=== PATIENT | male | born 1945 | race Caucasian/White ===

== ENCOUNTER 2016-08-28 00:06 | Observation (INO) | payer OTHER, MEDICARE ==
[~2016-08-28] VITALS: Ht 175.3 cm; Wt 100.0 kg
[2016-08-28] VITALS (8 sets, daily range): BP systolic 121–151; BP diastolic 68–94; PULSE 74–115; RESP 16–20; TEMP 98–98.7; O2SAT 95–98
[2016-08-28] MEDS ORDERED: ASPI81CH CHEW (00:16)
[2016-08-28] MEDS ORDERED: FURO1TAB62 PO (00:16)
[2016-08-28] MEDS ORDERED: SODIUM CHLORIDE 0.9% FLUSH 5 ML FLUSH IVF PRN ×2 (00:45→03:30)
[2016-08-28] MEDS ORDERED: NITROGLYCERIN 0.4 MG SL 25 TABS/BTL SL ONE (00:45)
[2016-08-28] MEDS ORDERED: NITROGLYCERIN 2% OINT 1 GM PACKET TOP ONE (00:45)
[2016-08-28 01:05] LABS: AUTOMATED NEUTROPHIL # 9.8 TH/MM3 (1.8-7.7); BASOPHIL % 0.4 % (0.0-2.0); EOSINOPHIL % 0.1 % (0.0-4.0); HEMATOCRIT 42.9 % (39.0-51.0); HEMO FLAGS DIFF FINAL; LYMPH % 12.3 % (9.0-44.0); LYMPHOCYTE # 1.5 TH/MM3 (1.0-4.8); MEAN CELL VOLUME 92.4 FL (80.0-100.0); MEAN CORPUSCULAR HEMOGLOBIN 31.5 PG (27.0-34.0); MONO % 5.3 % (0.0-8.0); NEUT % 81.9 % (16.0-70.0); PLATELET COUNT 306 TH/MM3 (150-450); RED BLOOD COUNT 4.64 MIL/MM3 (4.50-5.90); RED CELL DISTRIBUTION WIDTH 13.7 % (11.6-17.2)
--- NOTE | 2016-08-28 01:10 | RADRPT ---
EXAM DATE/TIME: 08/28/2016 00:50 [facility] COMPARISON: No previous studies available for comparison. INDICATIONS : Shortness of breath. MEDICAL HISTORY : Hypertension. SURGICAL HISTORY : Cardiac catheterization. ENCOUNTER: Initial ACUITY: 1 day PAIN SCORE: Non-responsive. LOCATION: Bilateral chest FINDINGS: A single view of the chest demonstrates the lungs to be symmetrically aerated without evidence of mas s, infiltrate or effusion. Mild cardiomegaly. The cardiomediastinal contours are unremarkable. [place] us structures are intact. CONCLUSION: No acute disease. Mild cardiomegaly. Quentin Pérez MD on August 28, 2016 at 1:08 Board Certified Radiologist. This report was verified electronically.
--- NOTE | 2016-08-28 01:14 | PD ---
HPI Chief Complaint: Chest Pain Time Seen by Provider: 00:37 Travel History International Travel<30 days: No Contact w/Intl Traveler<30days: No Traveled to known affect area: No History of Present Illness HPI The patient is a 70 year old female who presents to the [facility] emergency department with a history of chest pain that he reports began 3 hours prior to arrival. The patient reports that the pain is in the center of his chest and is constant. He reports the pain is sharp in character and 10 out of 10 in severity. He reports that he has a history of 3 prior myocardial infarctions, however he denies any cardiac surgery or stent placements. He reports that he last had a cardiac catheterization a year ago. He reports that he is visiting the area from out of town. He reports that he decided to discontinue most of his medications 100 days ago as he did not feel well on them. He reports that 4 weeks ago at another facility was diagnosed with a pulmonary embolism. He denies being on any anticoagulation other than a baby aspirin daily. The patient reports that he did take his baby aspirin today. He reports that he also is taking Lasix daily. The patient reports having associated shortness of breath with the chest pain, nausea, diaphoresis. He denies having any vomiting or diarrhea. The patient denies having any recent fevers, neck pain, abdominal pain, vomiting, diarrhea, urinary symptoms, or neurologic symptoms. [facility] Past Medical History Narrative Medical The patient's past medical history is significant for a prior cerebrovascular accident, right bundle branch block, reported history of 3 prior myocardial infarctions, diagnosis of a pulmonary embolism 4 weeks ago, history of hypertension, history of pancreatitis Heart Rhythm Problems: Yes (RBB) Cardiac Catheterization: Yes Cerebrovascular Accident: Yes Diabetes: Yes Patient Takes Glucophage: No Hypertension: Yes Medical other: Yes (SHRAPMETAL IN BODY) Psychiatric: Yes (TARDIVE DISK) Respiratory: Yes (PE) Myocardial Infarction: Yes (X3) Pancreatitis: Yes Tetanus Vaccination: Unknown Influenza Vaccination: No Past Surgical History Narrative Surgical The patient's past surgical history is significant for an appendectomy, cholecystectomy, shrapnel removal from his head and groin. Appendectomy: Yes Cholecystectomy: Yes Social History Alcohol Use: No Tobacco Use: Yes Substance Use: No Allergies-Medications (Allergen,Severity, Reaction): Coded Allergies: No Known Allergies (Unverified , 08/28/16) Reported Meds & Prescriptions Reported Meds & Active Scripts Active Reported Glucotrol (Glipizide) 5 Mg Tab 2.5 Mg PO HS Take 30 minutes before a meal Robaxin (Methocarbamol) Unknown Strength Tab 1 Tab PO DAILY Risperdal (Risperidone) Unknown Strength Tab 1 Tab PO DAILY Oxybutynin ER 24 HR (Oxybutynin Chloride) 10 Mg Tab 10 Mg PO DAILY Lasix (Furosemide) 20 Mg Tab 20 Mg PO DAILY Aspirin 81 Mg Chew 81 Mg CHEW DAILY Review of Systems Except as stated in HPI: all other systems reviewed are Neg General / Constitutional: No: Fever Eyes: No: Visual changes HENT: No: Headaches Cardiovascular: Positive: Chest Pain or Discomfort, Diaphoresis, Dyspnea on exertion Respiratory: Positive: Shortness of Breath Gastrointestinal: Positive: Nausea, No: Abdominal Pain Genitourinary: No: Dysuria Musculoskeletal: No: Pain Skin: No Rash Neurologic: No: Weakness Psychiatric: No: Depression Endocrine: No: Polydipsia Hematologic/Lymphatic: No: Easy Bruising Physical Exam Narrative General: The patient is a well-developed well-nourished male in no acute distress. Head and Neck exam: Head is normocephalic atraumatic. Eyes: Pupils are equal round and reactive to light. Nose: Midline septum with pink mucous membranes Mouth: Dentition unremarkable. Moist mucus membranes. Posterior oropharynx is not erythematous. No tonsillar hypertrophy. Uvula midline. Airway patent. Neck: No palpable lymphadenopathy. No nuchal rigidity. No thyromegaly. Cardiovascular: Sinus tachycardia in the low 100 without murmurs, gallops, or rubs. No pulse deficit to the extremities on simultaneous auscultation and palpation of his radial artery. Lungs: Clear to auscultation bilaterally. No wheezes, rhonchi, or rales. Abdomen: Soft, without tenderness to palpation in all 4 quadrants of the abdomen. No guarding, rebound, or rigidity. Normal bowel sounds are audible. Extremities: No clubbing, cyanosis, or edema. 2+ pulses in all 4 extremities. No Tenderness on palpation. Back: No spinous process tenderness to palpation. No costovertebral angle tenderness to palpation. Neurologic Exam: Grossly nonfocal. Skin Exam: No rash noted. Intact skin that is warm and dry. Data Data Last Documented VS Vital Signs Date Time Temp Pulse Resp B/P Pulse Ox O2 Delivery O2 Flow Rate FiO2 08/28/16 01:05 96 Nasal Cannula 2 08/28/16 01:05 16 08/28/16 00:26 93 08/28/16 00:11 98.2 142/94 Orders Electrocardiogram (08/28/16 00:40) B-Type Natriuretic Peptide (08/28/16 00:40) Ckmb (Isoenzyme) Profile (08/28/16 00:40) Complete Blood Count With Diff (08/28/16 00:40) Comprehensive Metabolic Panel (08/28/16 00:40) Magnesium (Mg) (08/28/16 00:40) Prothrombin Time / Inr (Pt) (08/28/16 00:40) Act Partial Throm Time (Ptt) (08/28/16 00:40) Troponin I (08/28/16 00:40) Lipase (08/28/16 00:40) Chest, Single Ap (08/28/16 00:40) Ecg Monitoring (08/28/16 00:40) Bilateral Bp Monitoring (08/28/16 00:40) Iv Access Insert/Monitor (08/28/16 00:40) Oximetry (08/28/16 00:40) Oxygen Administration (08/28/16 00:40) Nitroglycerin 2% Oint (Nitroglycerin 2% (08/28/16 00:45) Sodium Chloride 0.9% Flush (Ns Flush) (08/28/16 00:45) Nitroglycerin Sl (Nitrostat Sl) (08/28/16 00:45) Ct Pulmonary Angiogram (08/28/16 00:40) CKMB (08/28/16 00:45) CKMB% (08/28/16 00:45) Sodium Chlorid 0.9% 500 Ml Inj (Ns 500 M (08/28/16 01:45) Iohexol 350 Inj (Omnipaque 350 Inj) (08/28/16 01:54) Admit Order (Ed Use Only) (08/28/16 02:42) Labs Laboratory Tests Test 08/28/16 00:45 White Blood Count 12.0 TH/MM3 Red Blood Count 4.64 MIL/MM3 Hemoglobin 14.6 GM/DL Hematocrit 42.9 % Mean Corpuscular Volume 92.4 FL Mean Corpuscular Hemoglobin 31.5 PG Mean Corpuscular Hemoglobin 34.0 % Concent Red Cell Distribution Width 13.7 % Platelet Count 306 TH/MM3 Mean Platelet Volume 9.9 FL Neutrophils (%) (Auto) 81.9 % Lymphocytes (%) (Auto) 12.3 % Monocytes (%) (Auto) 5.3 % Eosinophils (%) (Auto) 0.1 % Basophils (%) (Auto) 0.4 % Neutrophils # (Auto) 9.8 TH/MM3 Lymphocytes # (Auto) 1.5 TH/MM3 Monocytes # (Auto) 0.6 TH/MM3 Eosinophils # (Auto) 0.0 TH/MM3 Basophils # (Auto) 0.0 TH/MM3 CBC Comment DIFF FINAL Differential Comment Prothrombin Time 11.8 SEC Prothromb Time International 1.1 RATIO Ratio Activated Partial 28.3 SEC Thromboplast Time Sodium Level 138 MEQ/L Potassium Level 4.6 MEQ/L Chloride Level 104 MEQ/L Carbon Dioxide Level 24.6 MEQ/L Anion Gap 9 MEQ/L Blood Urea Nitrogen 26 MG/DL Creatinine 1.67 MG/DL Estimat Glomerular Filtration 41 ML/MIN Rate Random Glucose 140 MG/DL Calcium Level 9.3 MG/DL Magnesium Level 1.5 MG/DL Total Bilirubin 0.4 MG/DL Aspartate Amino Transf 32 U/L (AST/SGOT) Alanine Aminotransferase 45 U/L (ALT/SGPT) Alkaline Phosphatase 93 U/L Total Creatine Kinase 336 U/L Creatine Kinase MB 7.3 NG/ML Creatine Kinase MB % 2.2 % Troponin I LESS THAN 0.02 NG/ML B-Type Natriuretic Peptide 47 PG/ML Total Protein 8.4 GM/DL Albumin 3.7 GM/DL Lipase 162 U/L [facility] Medical Decision Making Medical Screen Exam Complete: Yes Emergency Medical Condition: Yes Medical Record Reviewed: Yes Interpretation(s) Last Impressions Chest X-Ray 08/28/1639 Signed Impressions: Service Date/Time: Sunday, August 28, 2016 00:50 - CONCLUSION: No acute disease. Mild cardiomegaly. Quentin Pérez MD CT Angiography 08/28/1639 Signed Impressions: Service Date/Time: Sunday, August 28, 2016 01:50 - CONCLUSION: 1. No evidence for pulmonary emboli. 2. Coronary artery calcifications. 3. No infiltrate seen. Quentin Pérez MD Differential Diagnosis Acute coronary syndrome, versus pulmonary embolism, versus pneumonia, versus pneumothorax, versus acid reflux Narrative Course During the course of the patients emergency department visit, the patients history, examination, and differential diagnosis were reviewed with the patient. The patient had IV access obtained and blood work sent for analysis. The patient was placed on a cardiac exercise physiologist with oximetry and blood pressure monitoring. An EKG was done on arrival. The patient's EKG shows a sinus tachycardia rate of 105, no acute ST segment changes are noted. No ST segment elevation or depression. The patient reports that he took 1 baby aspirin earlier today and ambulance services also administered one baby aspirin. The patient was given sublingual nitroglycerin and an inch of nitroglycerin paste was placed to the chest wall. The patient was started on normal saline IV fluids. The patients laboratory studies were reviewed and remarkable for a white count of 12, hemoglobin 14.6, platelets 306 with 81.9 neutrophils. CMP is remarkable for a BUN of 26, creatinine 1.67, glucose 140, CPK 336 with a 2.2 MB percent, less than 0.02 troponin, BNP is 47, lipase 162, INR is 1.1 Radiology studies were reviewed and remarkable for a CTA to rule out PE shows no evidence of pulmonary embolism. Chest x-ray is unremarkable. Initially, the patient's case was discussed with Dr. Vivar regarding admission, however she felt that the patient would be a good candidate for the chest pain center. Therefore, the patient will be admitted to the chest pain center for rule out serial cardiac enzyme protocol. The patients results were discussed with the patient, including the plan of care. I explained that further testing and/ or monitoring is indicated based on the patients history, examination, and/ or laboratory findings. Therefore, I recommended admission for additional evaluation. The patient expressed understanding and was agreeable with this plan. The patient was admitted to the hospital in stable condition and sent to a bed under the care of the chest pain center. Diagnosis Primary Impression: Chest pain, rule out acute myocardial infarction Additional Impression: Hx of coronary artery disease Admitting Information Admitting Physician Requests: Masha Toledo MD Aug 28, 2016 01:14
[2016-08-28 01:23] LABS: ALT (GPT) 45 U/L (12-78); ANION GAP 9 MEQ/L (5-15); AST (GOT) 32 U/L (15-37); BICARBONATE 24.6 MEQ/L (21.0-32.0); BLOOD UREA NITROGEN 26 MG/DL (7-18); CHLORIDE 104 MEQ/L (98-107); GLOMERULAR FILTRATION RATE 41 ML/MIN (>89); MAGNESIUM 1.5 MG/DL (1.5-2.5); POTASSIUM 4.6 MEQ/L (3.5-5.1); SODIUM (NA) 138 MEQ/L (136-145)
[2016-08-28 01:26] LABS: ALKALINE PHOSPHATASE 93 U/L (45-117); APTT (PATIENT) 28.3 SEC (24.3-30.1); CREATINE KINASE 336 U/L (39-308); INTERNATIONAL NORMALIZED RATIO 1.1 RATIO; PROTHROMBIN TIME - PATIENT 11.8 SEC (9.8-11.6); TOTAL BILIRUBIN ADULT 0.4 MG/DL (0.2-1.0)
[2016-08-28 01:38] LABS: CKMB 7.3 NG/ML (0.5-3.6)
[2016-08-28] MEDS ORDERED: SODIUM CHLORID 0.9% 500 ML INJ 500 ML IV ONE (01:45)
[2016-08-28] MEDS ORDERED: IOHEXOL 350 MG/ML 10 ML VIAL (for RAD DIAG) IV ONE (01:54)
--- NOTE | 2016-08-28 02:10 | RADRPT ---
EXAM DATE/TIME: 08/28/2016 01:50 [facility] COMPARISON: No previous studies available for comparison. INDICATIONS : Shortness of breath and chest pain. IV CONTRAST: 72 cc Omnipaque 350 (iohexol) IV RADIATION DOSE: 23.32 CTDIvol (mGy) MEDICAL HISTORY : Cerebrovascular disease. Cardiovascular disease Hypertension.Diabetes Emboli SURGICAL HISTORY : Appendectomy. Cholecystectomy. ENCOUNTER: Initial ACUITY: 1 day PAIN SCALE: 8/10 LOCATION: Bilateral chest TECHNIQUE: Volumetric scanning of the chest was performed using a pulmonary embolism protocol MIP images were re constructed. Using automated exposure control and adjustment of the mA and/or kV according to patien t size, radiation dose was kept as low as reasonably achievable to obtain optimal diagnostic quality images. FINDINGS: PULMONARY ARTERIES: No filling defects are seen in the pulmonary arteries through the segmental level. LUNGS: There is no consolidation or pneumothorax . No concerning pulmonary nodule is visualized. PLEURAE: There is no pleural thickening or pleural effusion. MEDIASTINUM: There is good visualization of the great vessels of the middle mediastinum. No evidence of mediastin al or hilar adenopathy/mass. Coronary artery calcifications. MUSCULOSKELETAL: Within normal limits for patient age. MISCELLANEOUS: The visualized upper abdominal organs demonstrate no acute abnormality. CONCLUSION: 1. No evidence for pulmonary emboli. 2. Coronary artery calcifications. 3. No infiltrate seen. Quentin Pérez MD on August 28, 2016 at 2:07 Board Certified Radiologist. This report was verified electronically.
[2016-08-28] MEDS ORDERED: ACETAMINOPHEN 500 MG CPLT PO PRN (03:30)
[2016-08-28] MEDS ORDERED: ONDANSETRON HCL 4 MG/2 ML VIAL IV PRN (03:30)
[2016-08-28 04:38] LABS: CREATINE KINASE 297 U/L (39-308)
[2016-08-28 04:51] LABS: CKMB 6.2 NG/ML (0.5-3.6)
[2016-08-28] MEDS: NITROGLYCERIN 2% OINT 1 GM PACKET TOP SCH ×3 (06:00→12:00)
[2016-08-28 07:30] LABS: CREATINE KINASE 281 U/L (39-308)
--- NOTE | 2016-08-28 08:33 | EKG ---
Date Performed: 08/28/2016 Time Performed: 03:52:34 PTAGE: 70 years EKG: ATRIAL FIBRILLATION WITH RAPID VENTRICULAR RESPONSE BORDERLINE LEFT AXIS DEVIATION NONSPECI FIC ST & T-WAVE ABNORMALITY ABNORMAL ECG NO PREVIOUS TRACING DOCTOR: Ganesh Martell Interpretating Date/Time 08/28/2016 08:31:43
--- NOTE | 2016-08-28 08:34 | EKG ---
Date Performed: 08/28/2016 Time Performed: 00:19:03 PTAGE: 70 years EKG: SINUS TACHYCARDIA ABNORMAL RHYTHM ECG NO PREVIOUS TRACING DOCTOR: Ganesh Martell Interpretating Date/Time 08/28/2016 08:32:32
[2016-08-28] MEDS ORDERED: PANTOPRAZOLE SOD 40 MG DELAYED RELEASE TAB PO SCH (09:00)
[2016-08-28] MEDS ORDERED: SODIUM CHLORIDE 0.9% FLUSH 5 ML FLUSH IVF SCH (09:00)
[2016-08-28] MEDS ORDERED: ASPIRIN 325 MG TAB PO SCH (09:00)
[2016-08-28] MEDS ORDERED: OXYB10TA PO (10:10)
[2016-08-28] MEDS ORDERED: RISP0.5T20 PO (10:10)
[2016-08-28] MEDS ORDERED: ROBA500T PO (10:10)
--- NOTE | 2016-08-28 10:51 | MH ---
cc: PRABHA GUALLPA MD DATE OF ADMISSION: 08/28/2016 DATE OF : 1945 CHIEF COMPLAINT Chest pain. HISTORY OF PRESENT ILLNESS: This is a 70 year-old male with stated history of coronary artery disease, he has history of three myocardial infarctions in 1994. He states that he had a heart catheterization at that time. He does not know the results but states that he never had any stenting. He states that he has had no cardiac work up since. He states he is from out of town, planned on being in [facility] for a few days before trying to get a flight out to [place] to eventually continue to fly to another [facility] where he wants to move to. He states he took a taxi cab from [facility] to [place] and was walking around yesterday late afternoon into the evening trying to find a Hotel but every time they checked his debit card it would not work. He would try the next hotel which was not successful. He decided that he should probably go to the [email or web address]. He states that he knows how that works but knew he could get a place at the [employer]. He was told there is no longer [facility] giving sleeping arrangements. He ran into an officer at the time and asked he they could call him non emergency transportation to the hospital for his chest pain. [facility] was dispatched, on emergent basis for his chest pain. He said he developed chest discomfort while walking towards the [facility], in the left side of his chest, the squeezing sensation is still there. It began somewhere last night before midnight. He states he is short of breath and diaphoretic with it. He found nothing really to worsen or improve it, but states that the intensity waxes and wanes. He states that he was not given Nitroglycerin in the ambulance and state that he was not given a nitroglycerin in the emergency room but on records he was given sublingual nitroglycerin as well as nitro ointment. He also was given IV fluids. The patient also was discharged from a psychiatric facility 110 days ago. He states that since then for the last 110 days he has not been taking all his psychotropic medications. He states the only medication that he has continued to take include; Robinul, aspirin, Lasix, Risperdal and oxybutynin. We will try to have these medications verified. We will get the hvac field service technician involved. He states that there are 26 psychotropic medications that he is not taking. He also states that he had a history of a pulmonary embolus at a different facility four weeks ago. He states that he is not on anticoagulation therapy. PAST MEDICAL HISTORY: 1. He states that he had three myocardial infarction in 1994. 2. Pulmonary embolus four weeks ago. However, he states that he was never given anticoagulation. 3. History of hypertension. 4. Diabetes. 5. Denies hyperlipidemia. 6. Admits to schizophrenia as well. FAMILY HISTORY: He states that his mother had at age 58 of coronary artery disease. SOCIAL HISTORY: The patient quit smoking 22 years ago. Prior to that he smoked five packs of cigarettes daily for four years. He rarely has alcohol, denies illicit drugs. PAST SURGICAL HISTORY: Heart catheterization as mentioned. Appendectomy. Cholecystectomy. Removal of scrape metal. ALLERGIES NO KNOWN DRUG ALLERGIES MEDICATIONS: We will get an accurate list, hvac field service technician assistance hopefully. REVIEW OF SYSTEMS GENERAL: Denies fevers or chills. Denies recent illnesses. HEAD, EYES, EARS, NOSE, AND THROAT: Denies headache, earache, sore throat, difficulty swallowing. CARDIOVASCULAR SYSTEM: Described his discomfort as mentioned above. He had some diaphoresis. Denies sensation of the heart beating rapidly or irregularly. He denies syncope. RESPIRATORY: He states that he is short of breath. No inspirational chest discomfort. Denies coughing, wheezing or hemoptysis. GASTROINTESTINAL: He has nausea but denies emesis. Denies abdominal pain. Denies diarrhea, constipation, blood in stool. MUSCULOSKELETAL: Denies joint pain or edema. Denies calf pain or edema. NEUROVASCULAR: Denies headache or dizziness. ENDOCRINE: Denies polyuria or polydipsia. HEMATOLOGIC: Denies easy bruising. SKIN: Denies rash or itching. PHYSICAL EXAMINATION: VITAL SIGNS: Vital signs in the emergency department included a blood pressure of 142/95, 110, respirations 20, pulse oximetry 96% on room air and he is afebrile. Most recent vital signs include; blood pressure 131/77, heart rate 100. Respirations 18, pulse oximetry 97% on room air. He is afebrile. IN GENERAL: The patient was seen in the examination room in no apparent distress. He is pleasant and speaks in clear and complete sentences. HEAD, EYES, EARS, NOSE, AND THROAT: Head is Atraumatic, normocephalic. NECK: The neck is supple. Without lymphadenopathy. Trachea is midline, no jugular venous distention or carotid bruits. CARDIOVASCULAR SYSTEM: Regular rate and rhythm without murmur, gallop. RESPIRATORY: Lungs are clear to auscultation bilaterally, no wheezing, rales or rhonchi. No use of accessory muscles. He has reproducible chest wall discomfort. GASTROINTESTINAL: The abdomen is nontender, nondistended, bowel sounds are normal. No guarding or rebound. No obvious pulsatile masses or bruits, no costovertebral angle tenderness. Strong femoral pulses bilaterally. MUSCULOSKELETAL: The patient is moving upper and lower extremities freely. No joint tenderness or edema, no calf tenderness or edema, no Homans sign. Strong pulses in upper and lower extremities. NEUROVASCULAR: The patient is alert and oriented, cranial nerves II through XII are grossly intact. No focal deficits. Speech is clear. SKIN: No rashes, turgor is normal. RADIOLOGIC: Electrocardiogram initial electrocardiogram had sinus tachycardia rate of 116, without significant ST segment depression or elevation, the second electrocardiogram shows sinus tachycardia rate of 105. Without significant ST segment depression elevation. Third electrocardiogram sinus arrhythmia, rate of [address] segment depression or elevation. LABORATORY FINDINGS: CBC essentially unremarkable. Coagulation studies are unremarkable. Complete metabolic panel showed creatinine elevated at somewhat at 1.67, BUN elevated at 26, glomerular filtration rate is 41. Glucose elevated at 140, serial cardiac enzymes, troponins normal times three. BNP is normal at 47. Lipase normal at 62. IMAGING STUDIES: Included a chest x-ray read by the radiologist as no acute disease, mild cardiomegaly. A CT pulmonary angiogram obtained by and read through the radiologist with no evidence of pulmonary emboli. Coronary artery calcification, no is seen. ASSESSMENT AND PLAN: 1. Chest pain. The patient states that he has a history of coronary artery disease. He has had serial cardiac enzymes and electrocardiograms for ruling out purposes. He has been seen by Dr. Guallpa of cardiology. At this time he will undergo a lexiscan if that were to be unremarkable to discharge home with instructions to [facility] or from [facility] he chooses. We will try to get an accurate medication list on him. 2. Hypertension, hold Catapres at this time as needed but we will await current medication list. 3. Diabetes, he will be on sliding scale insulin coverage at discharge, at this time he is npo will add sliding scale insulin coverage, at discharge he can resume his medications. 4. He said he had history of PE four weeks ago. CTA of the chest was obtained and does not reveal evidence of any pulmonary embolus. There was some coronary artery calcification. No debridement. 5. History of schizophrenia, he admits being noncompliant with medications. He did take Risperdal as a possible medication that he maybe taking. We will await the pharmacy technicians list. 6. The patient is stable at this time and is agreeable to this plan. 7. He stated he had a history of pulmonary embolus four weeks ago. DICTATED BY: Eric Wallis PA-C Demarcus Barragan/marcelina /9:22 AM /10:50 AM
[2016-08-28] MEDS ORDERED: TOLTERODINE TARTRATE 4 MG CAP LA PO SCH (12:00)
[2016-08-28] MEDS ORDERED: REGADENOSON INJ 0.4 MG/5 ML SYR ONE (12:54)
--- NOTE | 2016-08-28 14:18 | EKG ---
Date Performed: 08/28/2016 Time Performed: 06:55:00 PTAGE: 70 years EKG: Sinus rhythm WITH SINUS ARRHYTHMIA BORDERLINE LEFT AXIS DEVIATION NONSPECIFIC T-WAVE ABNORMALITY BORDERLINE ECG PREVIOUS TRACING : 08/28/2016 03.52 Since previous tracing, no significant change noted DOCTOR: John Paul Austin Interpretating Date/Time 08/28/2016 14:10:16
[2016-08-28] MEDS ORDERED: GLIP5 PO (16:04)
--- NOTE | 2016-08-28 16:12 | RADRPT ---
EXAM DATE/TIME: 08/28/2016 12:29 [facility] COMPARISON: No previous studies available for comparison. INDICATIONS: Mid chest pain for one day. Angina. DOSE: 26.2 mCi Tc99m Myoview at stress. 8.1 mCi Tc99m Myoview at rest. 0.4 mg Lexiscan STRESS SYMPTOMS: Shortness of breath. EJECTION FRACTION: 64% MEDICAL HISTORY: Myocardial infarction. Hypertension. SURGICAL HISTORY: Appendectomy. Cholecystectomy. ENCOUNTER: Initial ACUITY: 1 day PAIN SCALE: 10/10 LOCATION: Mid-sternal chest discomfort TECHNIQUE: The patient underwent pharmacologic stress with infusion of prescribed dose. Continuous ECG tracing was monitored during stress. Gated SPECT imaging was performed after stress and conventional SPECT i maging was performed at rest. The examination was performed on a SPECT/CT scanner, both attenuation and non-corrected datasets were reviewed. FINDINGS: The gated Cine loop images demonstrate no focal wall motion abnormality. The left ventricular ejecti on fraction is calculated at 64%. The cardiac SPECT and rest images demonstrate small fixed defect involving the cardiac apex suggestin g possible small apical infarct in the LAD distribution. Clinical correlation is recommended. No re versible defects are noted to suggest ischemia. CONCLUSION: 1. Small fixed defect involving the apex suggesting possible small LAD infarct. Clinical correlatio n is recommended. 2. No reversible defect to suggest ischemia. 3. No focal wall motion abnormality. Left ventricular ejection fraction is calculated at 64%. RISK CATEGORY: Low risk (less than 1% annual mortality rate). Abran Skinner MD on August 28, 2016 at 15:51 Board Certified Radiologist. This report was verified electronically.
--- NOTE | 2016-08-28 16:18 | HHI.DCPOC ---
Discharge Care Plan Diagnosis: (1) Chest pain (2) Hx of coronary artery disease (3) Hypertension (4) DM (diabetes mellitus) (5) Renal insufficiency (6) Schizophrenia Goals to Promote Your Health DISCUSS THE NEED OF STATIN THERAPY AND A BLOOD PRESSURE MEDICINE CALLED LISINOPRIL YOU HAVE DIABETES. ALSO STAY HYDRATED. * To prevent worsening of your condition and complications * To maintain your health at the optimal level Directions to Meet Your Goals Take your medications as prescribed Follow your dietary instruction Follow activity as directed Keep your appointments as scheduled Take your immunizations and boosters as scheduled If your symptoms worsen call your PCP, if no PCP go to Urgent Care Center or Emergency Room Smoking is Dangerous to Your Health. Avoid second hand smoke Call the 24-hour hour crisis hotline for domestic abuse at Eric Wallis Aug 28, 2016 16:18
--- NOTE | 2016-08-28 17:01 | TR ---
Date Performed: 08/28/2016 Time Performed: 13:04:06 DOCTOR: Rocio Martinez DRUG LIST: CLINICAL HISTORY: ANGINA REASON FOR TEST: Angina REASON FOR ENDING: OBSERVATION: CONCLUSION: Lexiscan stress test was performed under standard four minute protocol. Radionuclid e was injected one minute prior to ending the test. No electrocardiographic abormalities were present to suggest ischemia. Nuclear imaging and interpretation are pending. COMMENTS:
== END 2016-08-28 21:08 | disposition home or self-care (01) ==
LOC: NEPC 00:06 → NEDA 02:44 → NEPFCDU 05:27
PROVIDERS: ADMIT Internal Medicine Cardiovascular Disease; ATTEND Internal Medicine Cardiovascular Disease
DX: R07.9 Chest pain, unspecified (principal); I11.9 Hypertensive heart disease without heart failure; I25.10 Atherosclerotic heart disease of native coronary artery without angina pectoris; I51.7 Cardiomegaly; E11.9 Type 2 diabetes mellitus without complications; N28.9 Disorder of kidney and ureter, unspecified; F20.9 Schizophrenia, unspecified; I25.2 Old myocardial infarction; R61 Generalized hyperhidrosis; R06.02 Shortness of breath; Z72.0 Tobacco use; Z91.14 Patient's other noncompliance with medication regimen
CPT/HCPCS: 71010; 71275; 78452; 80053; 82550; 82552; 83690; 83735; 83880; 84484; 85025; 85610; 85730; 93005; 93017; 99285; A9502; G0378; J2785; J7040; Q9967